=== PATIENT | female | born 1965 | race Caucasian/White ===

== ENCOUNTER → 2020-07-18 | Outpatient (CLI) | payer OTHER | LOC: KOH-I 08:00 | DX: N20.0 Calculus of kidney (principal) | CPT/HCPCS: 74176 ==

== ENCOUNTER → 2020-10-27 | Outpatient (CLI) | payer OTHER | LOC: MRI 12:43 | DX: G35 Multiple sclerosis (principal); G93.89 Other specified disorders of brain; M48.02 Spinal stenosis, cervical region; M50.223 Other cervical disc displacement at C6-C7 level | CPT/HCPCS: 70553; 72156; A9577 ==

== ENCOUNTER → 2021-09-29 | Outpatient (CLI) | payer OTHER | LOC: EMI 09-03 14:00 → MRI 09-18 11:00 | DX: G35 Multiple sclerosis (principal); R90.82 White matter disease, unspecified | CPT/HCPCS: 36415; 70553; A9577 ==